=== PATIENT | female | born 1970 | race Caucasian/White ===

== ENCOUNTER 2017-11-17 16:02 | Emergency (ER) | payer MEDICAID ==
[~2017-11-17] VITALS: Ht 165.1 cm; Wt 127.0 kg
[2017-11-17 16:41] VITALS: BP_SYST 154
--- NOTE | 2017-11-17 18:20 | NUR ---
Patient to [facility] bed 1 to await MD evaluation.
[2017-11-17] MEDS ORDERED: cefTRIAXone 1 GM VIAL IM ONE (18:30)
--- NOTE | 2017-11-17 18:30 | NUR ---
Dr. Esquivel at chairside to assess pt.
--- NOTE | 2017-11-17 19:00 | NUR ---
Patient arrived to ED a/o x 4 with c/o right sided pain and tenderness. Patient presents with red and inflammed right thigh and lower leg pain. Reports 8/10 pain. Patient febrile at 100.1. Denies SOB or CP. CMS present to affected extremity.
[2017-11-17] MEDS ORDERED: LIDOCAINE 1%, 20 ML MDV 20 ML ONE (19:07)
[2017-11-17 19:17] VITALS: BP_SYST 151
--- NOTE | 2017-11-17 19:17 | NUR ---
Patient given written and verbal discharge instructions and verbalizes understanding. ER MD discussed with patient the results and treatment provided. Patient in stable condition. ID arm band removed. Rx of Bactrim, Keflex and ibuprofen given. Patient educated on pain management and to follow up with PMD. Pain Scale 3/10. Opportunity for questions provided and answered.
== END 2017-11-17 19:17 | disposition home or self-care (01) ==
LOC: SED 16:02
DX: L03.116 Cellulitis of left lower limb (principal); R03.0 Elevated blood-pressure reading, without diagnosis of hypertension; F17.210 Nicotine dependence, cigarettes, uncomplicated
CPT/HCPCS: 96372; 99283; J0696; J2001

== ENCOUNTER 2018-02-14 16:00 | Inpatient (IN) | payer MEDICAID ==
[~2018-02-14] VITALS: Ht 165.1 cm; Wt 102.1 kg
[2018-02-14 16:08] VITALS: BP_SYST 140
[2018-02-14] MEDS ORDERED: NACL 0.9% 1,000 ML IV ONE ×2 (16:20→18:00)
[2018-02-14] MEDS ORDERED: KETOROLAC TROMETHAMINE 30 MG VIAL IVP ONE (16:30)
[2018-02-14 16:44] LABS: BASOPHILS # (AUTO) 0.1 K/uL (0.0-0.2); BASOPHILS % (AUTO) 0.4 % (0.0-2.0); EOSINOPHILS # (AUTO) 0.3 K/uL (0.0-0.4); EOSINOPHILS % (AUTO) 1.6 % (0.0-4.0); HEMATOCRIT 28.5 % (36-48); HEMOGLOBIN 8.9 g/dL (12.0-16.0); LYMPHOCYTES # (AUTO) 1.7 K/uL (1.0-5.5); LYMPHOCYTES % (AUTO) 9.5 % (20.5-51.5); MEAN CORPUSCULAR HEMOGLOBIN 22 pg (27-31); MEAN CORPUSCULAR HGB CONC 31 % (32-36); MEAN CORPUSCULAR VOLUME 70 fL (79.0-98.0); MONOCYTES # (AUTO) 1.3 K/uL (0.0-1.0); MONOCYTES % (AUTO) 7.2 % (1.7-9.3); NEUTROPHILS # (AUTO) 14.2 K/uL (1.8-7.7); NEUTROPHILS % (AUTO) 81.3 % (40.0-70.0); PLATELET COUNT (AUTO) 533 K/uL (130-430); RED BLOOD CELL COUNT(AUTO) 4.06 MIL/uL (4.2-6.2); RED CELL DISTRIBUTION WIDTH 18.2 % (9.0-15.0); WHITE BLOOD COUNT (AUTO) 17.6 K/uL (4.8-10.8)
[2018-02-14 16:50] LABS: BILIRUBIN,URINE NEGATIVE (NEGATIVE); BLOOD, URINE 3+ (NEGATIVE); CLARITY/URINE SL CLOUDY (CLEAR); COLOR,URINE YELLOW (YELLOW); GLUCOSE,URINE NEGATIVE (NEGATIVE); KETONES,URINE NEGATIVE (NEGATIVE); LEUKOCYTE ESTERASE ,URINE 1+ (NEGATIVE); NITRITE, URINE NEGATIVE (NEGATIVE); PH,URINE 5.5 (5.0-8.0); PROTEIN URINE 2+ (NEGATIVE); UROBILINOGEN,URINE 0.2 (0.2-1.0)
[2018-02-14 16:56] LABS: BACTERIA,URINE MANY /HPF (None Seen); MUCUS,URINE None Seen /LPF (None Seen); RBC,URINE 80-100 /HPF (0-3); WBC,URINE 80-100 /HPF (0-3)
[2018-02-14 16:59] LABS: CALCIUM 9.2 mg/dL (8.4-11.0); CREATININE 1.02 mg/dL (0.55-1.30); POTASSIUM 3.5 mmol/L (3.5-5.1)
[2018-02-14 17:04] LABS: ALBUMIN 2.9 g/dL (3.4-4.8); TOTAL BILIRUBIN 0.4 mg/dL (0.0-1.0)
[2018-02-14] MEDS ORDERED: cefTRIAXone 1 GM in D5W 50 ML IV ONE (17:30)
[2018-02-14] MEDS ORDERED: cefTRIAXone 1 GM VIAL ONE (17:51)
[2018-02-14] MEDS ORDERED: FERR-69 PO (18:18)
[2018-02-14] MEDS ORDERED: ONDANSETRON HCL 4 MG/2 ML VIAL IVP ONE (18:30)
[2018-02-14 19:40] VITALS: BP_SYST 163
[2018-02-14] MEDS ORDERED: ACETAMINOPHEN 650 MG SUPP.RECT RC PRN (19:45)
[2018-02-14] MEDS ORDERED: MORPHINE 2 MG/ML INJ. SYRINGE IVP PRN (19:45)
[2018-02-14] MEDS ORDERED: PIPERACILLIN/TAZO 3.375 GM in NS 50 ML IV ONE (20:00)
[2018-02-14] MEDS ORDERED: metroNIDAZOLE 500 mg/NS 100 ML IV ONE ×2 (20:00→21:22)
[2018-02-14 20:17] LABS: TOTAL IRON BIND. CAPACITY 326 ug/dL (250-450)
[2018-02-14] MEDS ORDERED: KCL 20 mEq in 100 mL (PREMIX) 100 ML IV ONE ×2 (20:48→21:27)
[2018-02-14] MEDS ORDERED: PIPERACILLIN/TAZOBACTAM 3.375 GM/VIAL (ZOSYN) IV ONE (21:22)
[2018-02-14] MEDS: POTASSIUM CHLORIDE 10 MEQ in NACL 0.9% 1,000 ML IV SCH (21:55)
[2018-02-14] MEDS: PANTOPRAZOLE SODIUM 40 MG/VIAL (PROTONIX) IVP SCH (22:36)
[2018-02-14 23:00] VITALS: BP_SYST 156
[2018-02-14] MEDS: PIPERACILLIN/TAZO 3.375/DEX-IS 50 ML IV SCH (23:23)
[2018-02-15] MEDS: MORPHINE 4 MG/ML INJ. SYRINGE IVP PRN ×5 (00:10→22:18)
[2018-02-15 01:05] VITALS: BP_SYST 166
[2018-02-15 04:08] VITALS: BP_SYST 155
[2018-02-15] MEDS: POTASSIUM CHLORIDE 10 MEQ in NACL 0.9% 1,000 ML IV SCH ×4 (05:36→19:56)
[2018-02-15] MEDS: metroNIDAZOLE 250 mg/NS 50 ML IV SCH ×3 (05:46→22:17)
[2018-02-15] MEDS: PIPERACILLIN/TAZO 3.375/DEX-IS 50 ML IV SCH ×4 (06:00→23:54)
[2018-02-15 06:43] LABS: EOSINOPHILS # (AUTO) 0.4 K/uL (0.0-0.4); HEMOGLOBIN 7.5 g/dL (12.0-16.0); MEAN CORPUSCULAR HEMOGLOBIN 22 pg (27-31)
[2018-02-15 06:55] LABS: RED BLOOD CELL COUNT(AUTO) 3.49 MIL/uL (4.2-6.2)
[2018-02-15 06:56] LABS: HEMATOCRIT 24.9 % (36-48); MEAN CORPUSCULAR VOLUME 71 fL (79.0-98.0)
[2018-02-15 06:57] LABS: LYMPHOCYTES % (AUTO) 6.5 % (20.5-51.5); NEUTROPHILS % (AUTO) 81.6 % (40.0-70.0); PLATELET COUNT (AUTO) 492 K/uL (130-430); RED CELL DISTRIBUTION WIDTH 18.5 % (9.0-15.0)
[2018-02-15 06:58] LABS: BASOPHILS % (AUTO) 0.2 % (0.0-2.0); EOSINOPHILS % (AUTO) 2.8 % (0.0-4.0); LYMPHOCYTES # (AUTO) 0.9 K/uL (1.0-5.5); MONOCYTES # (AUTO) 1.3 K/uL (0.0-1.0); MONOCYTES % (AUTO) 8.9 % (1.7-9.3); NEUTROPHILS # (AUTO) 11.7 K/uL (1.8-7.7)
[2018-02-15 06:59] LABS: MEAN CORPUSCULAR HGB CONC 30 % (32-36); WHITE BLOOD COUNT (AUTO) 14.3 K/uL (4.8-10.8)
[2018-02-15 07:13] LABS: ALBUMIN 2.3 g/dL (3.4-4.8); BILIRUBIN,DIRECT 0.1 mg/dL (0.0-0.3); CALCIUM 8.8 mg/dL (8.4-11.0); CREATININE 0.84 mg/dL (0.55-1.30); POTASSIUM 3.3 mmol/L (3.5-5.1); TOTAL BILIRUBIN 0.4 mg/dL (0.0-1.0)
[2018-02-15 07:47] LABS: THYROID STIMULATING HORMONE 1.5 uIu/mL (0.34-4.82)
[2018-02-15] MEDS: PANTOPRAZOLE SODIUM 40 MG/VIAL (PROTONIX) IVP SCH (08:06)
[2018-02-15] MEDS ORDERED: POTASSIUM CHLORIDE 30 MEQ in NS 250 ML IV ONE (08:30)
[2018-02-15] MEDS ORDERED: MORPHINE 4 MG/ML INJ. SYRINGE ONE (11:47)
[2018-02-15 12:50] VITALS: BP_SYST 155
[2018-02-15] MEDS ORDERED: FUROSEMIDE 40 MG/4 ML VIAL IVP ONE (13:00)
[2018-02-15] MEDS ORDERED: DIATR MEGLU/DIATRIZ SOD 30 ML SOLUTION PO ONE (15:01)
[2018-02-15] MEDS ORDERED: IOHEXOL 0 ML IV ONE (17:06)
[2018-02-15] MEDS ORDERED: IOHEXOL 100 ML IV ONE (17:13)
[2018-02-15 20:15] VITALS: BP_SYST 137
[2018-02-15 23:04] VITALS: BP_SYST 143
[2018-02-16] MEDS: metroNIDAZOLE 250 mg/NS 50 ML IV SCH ×2 (05:04→14:54)
[2018-02-16] MEDS: PIPERACILLIN/TAZO 3.375/DEX-IS 50 ML IV SCH ×4 (05:51→23:42)
[2018-02-16] MEDS: MORPHINE 4 MG/ML INJ. SYRINGE IVP PRN ×3 (05:56→23:09)
[2018-02-16 06:10] LABS: FOLATE (FOLIC ACID) 15.6 ng/mL (>3.0)
[2018-02-16 06:35] LABS: HEMATOCRIT 23.7 % (36-48); HEMOGLOBIN 7.2 g/dL (12.0-16.0); MEAN CORPUSCULAR HEMOGLOBIN 21 pg (27-31); MEAN CORPUSCULAR HGB CONC 31 % (32-36); MEAN CORPUSCULAR VOLUME 70 fL (79.0-98.0); RED BLOOD CELL COUNT(AUTO) 3.38 MIL/uL (4.2-6.2); RED CELL DISTRIBUTION WIDTH 17.8 % (9.0-15.0); WHITE BLOOD COUNT (AUTO) 19.4 K/uL (4.8-10.8)
[2018-02-16 06:51] LABS: ALBUMIN 2.2 g/dL (3.4-4.8); CALCIUM 8.6 mg/dL (8.4-11.0); CREATININE 0.99 mg/dL (0.55-1.30); TOTAL BILIRUBIN 0.4 mg/dL (0.0-1.0)
[2018-02-16 07:19] LABS: POTASSIUM 2.9 mmol/L (3.5-5.1)
[2018-02-16 07:31] LABS: PLATELET COUNT (AUTO) 535 K/uL (130-430)
[2018-02-16] MEDS ORDERED: POTASSIUM CHLORIDE 40 MEQ, LIDOCAINE JECT 2% PF 100 MG 50 MG in NS 250 ML IV ONE (08:00)
[2018-02-16 08:13] VITALS: BP_SYST 151
[2018-02-16] MEDS: POTASSIUM CHLORIDE 10 MEQ in NACL 0.9% 1,000 ML IV SCH (08:29)
[2018-02-16] MEDS: PANTOPRAZOLE SODIUM 40 MG/VIAL (PROTONIX) IVP SCH (08:31)
[2018-02-16 11:33] VITALS: BP_SYST 154
[2018-02-16] MEDS: ACETAMINOPHEN 325 MG TABLET PO PRN (16:31)
[2018-02-16 16:50] VITALS: BP_SYST 149
[2018-02-16] MEDS ORDERED: FLUCONAZOLE 100 mg/ NS 50 ML IV ONE (17:00)
[2018-02-16 19:45] VITALS: BP_SYST 154
[2018-02-16 23:42] VITALS: BP_SYST 174
[2018-02-17] VITALS (8 sets, daily range): BP systolic 141–169
[2018-02-17] MEDS: POTASSIUM CHLORIDE 10 MEQ in NACL 0.9% 1,000 ML IV SCH (00:28)
[2018-02-17] MEDS: ACETAMINOPHEN 325 MG TABLET PO PRN (00:55)
[2018-02-17] MEDS: MORPHINE 4 MG/ML INJ. SYRINGE IVP PRN ×5 (02:21→20:41)
[2018-02-17] MEDS: PIPERACILLIN/TAZO 3.375/DEX-IS 50 ML IV SCH ×3 (05:20→18:02)
[2018-02-17 06:02] LABS: BASOPHILS % (AUTO) 0.2 % (0.0-2.0); EOSINOPHILS # (AUTO) 0.7 K/uL (0.0-0.4); EOSINOPHILS % (AUTO) 4.1 % (0.0-4.0); HEMATOCRIT 23.8 % (36-48); HEMOGLOBIN 7.4 g/dL (12.0-16.0); LYMPHOCYTES # (AUTO) 1.4 K/uL (1.0-5.5); LYMPHOCYTES % (AUTO) 8.4 % (20.5-51.5); MEAN CORPUSCULAR HEMOGLOBIN 22 pg (27-31); MEAN CORPUSCULAR HGB CONC 31 % (32-36); MONOCYTES # (AUTO) 0.9 K/uL (0.0-1.0); MONOCYTES % (AUTO) 5.4 % (1.7-9.3); NEUTROPHILS # (AUTO) 13.6 K/uL (1.8-7.7); NEUTROPHILS % (AUTO) 81.9 % (40.0-70.0); PLATELET COUNT (AUTO) 544 K/uL (130-430); RED BLOOD CELL COUNT(AUTO) 3.37 MIL/uL (4.2-6.2); RED CELL DISTRIBUTION WIDTH 17.3 % (9.0-15.0); WHITE BLOOD COUNT (AUTO) 16.6 K/uL (4.8-10.8)
[2018-02-17 06:16] LABS: ALBUMIN 2.2 g/dL (3.4-4.8); CALCIUM 8.9 mg/dL (8.4-11.0); CREATININE 0.85 mg/dL (0.55-1.30); POTASSIUM 3.1 mmol/L (3.5-5.1); TOTAL BILIRUBIN 0.3 mg/dL (0.0-1.0)
[2018-02-17 06:56] LABS: MEAN CORPUSCULAR VOLUME 71 fL (79.0-98.0)
[2018-02-17] MEDS: PANTOPRAZOLE SODIUM 40 MG/VIAL (PROTONIX) IVP SCH (09:56)
[2018-02-17] MEDS ORDERED: POTASSIUM CHLORIDE 40 MEQ, LIDOCAINE JECT 2% PF 100 MG 50 MG in NS 250 ML IV ONE (10:15)
[2018-02-17] MEDS: KCL 20 mEq in NS 1000 mL 1,000 ML IV SCH (12:16)
[2018-02-17] MEDS: FLUCONAZOLE 100 mg/ NS 50 ML IV SCH (20:43)
[2018-02-17] MEDS: cloNIDine HCL 0.1 MG TABLET PO PRN (23:21)
[2018-02-18] VITALS (7 sets, daily range): BP systolic 146–165
[2018-02-18] MEDS: PIPERACILLIN/TAZO 3.375/DEX-IS 50 ML IV SCH ×5 (00:54→23:15)
[2018-02-18] MEDS: MORPHINE 4 MG/ML INJ. SYRINGE IVP PRN ×7 (02:01→21:13)
[2018-02-18] MEDS: KCL 20 mEq in NS 1000 mL 1,000 ML IV SCH ×2 (05:35→23:15)
[2018-02-18 06:18] LABS: BASOPHILS % (AUTO) 0.3 % (0.0-2.0); EOSINOPHILS % (AUTO) 6.1 % (0.0-4.0); HEMATOCRIT 26.4 % (36-48); HEMOGLOBIN 8.3 g/dL (12.0-16.0); LYMPHOCYTES # (AUTO) 1.2 K/uL (1.0-5.5); LYMPHOCYTES % (AUTO) 7.8 % (20.5-51.5); MEAN CORPUSCULAR HEMOGLOBIN 23 pg (27-31); MEAN CORPUSCULAR HGB CONC 31 % (32-36); MEAN CORPUSCULAR VOLUME 72 fL (79.0-98.0); MONOCYTES % (AUTO) 6.5 % (1.7-9.3); NEUTROPHILS # (AUTO) 12.4 K/uL (1.8-7.7); NEUTROPHILS % (AUTO) 79.3 % (40.0-70.0); RED BLOOD CELL COUNT(AUTO) 3.66 MIL/uL (4.2-6.2); RED CELL DISTRIBUTION WIDTH 17.7 % (9.0-15.0); WHITE BLOOD COUNT (AUTO) 15.6 K/uL (4.8-10.8)
[2018-02-18 06:54] LABS: CREATININE 0.84 mg/dL (0.55-1.30)
[2018-02-18 07:06] LABS: POTASSIUM 3.3 mmol/L (3.5-5.1)
[2018-02-18 07:10] LABS: PLATELET COUNT (AUTO) 611 K/uL (130-430)
[2018-02-18] MEDS: PANTOPRAZOLE SODIUM 40 MG/VIAL (PROTONIX) IVP SCH (09:36)
[2018-02-18] MEDS ORDERED: POTASSIUM CHLORIDE 10 MEQ TAB.PRT.SR PO ONE (10:00)
[2018-02-18] MEDS ORDERED: ALPRAZolam 0.25 MG TABLET PO ONE (16:30)
[2018-02-18] MEDS: FLUCONAZOLE 100 mg/ NS 50 ML IV SCH (21:11)
[2018-02-19] VITALS (7 sets, daily range): BP systolic 121–167
[2018-02-19] MEDS: MORPHINE 4 MG/ML INJ. SYRINGE IVP PRN ×7 (01:04→23:50)
[2018-02-19] MEDS: PIPERACILLIN/TAZO 3.375/DEX-IS 50 ML IV SCH ×4 (05:13→23:53)
[2018-02-19 07:36] LABS: CALCIUM 9.1 mg/dL (8.4-11.0); CREATININE 0.92 mg/dL (0.55-1.30); POTASSIUM 3.6 mmol/L (3.5-5.1)
[2018-02-19] MEDS: PANTOPRAZOLE SODIUM 40 MG/VIAL (PROTONIX) IVP SCH (08:18)
[2018-02-19] MEDS: FLUCONAZOLE 100 mg/ NS 50 ML IV SCH (20:15)
[2018-02-19] MEDS: cloNIDine HCL 0.1 MG TABLET PO PRN (20:17)
[2018-02-19] MEDS ORDERED: ZOLPIDEM TARTRATE 5 MG TABLET PO ONE (23:00)
[2018-02-19] MEDS: KCL 20 mEq in NS 1000 mL 1,000 ML IV SCH (23:58)
[2018-02-20] VITALS (7 sets, daily range): BP systolic 147–186
[2018-02-20] MEDS: MORPHINE 4 MG/ML INJ. SYRINGE IVP PRN ×6 (04:53→23:04)
[2018-02-20] MEDS: PIPERACILLIN/TAZO 3.375/DEX-IS 50 ML IV SCH ×4 (05:31→23:04)
[2018-02-20 06:16] LABS: BASOPHILS % (AUTO) 0.3 % (0.0-2.0); EOSINOPHILS % (AUTO) 6.5 % (0.0-4.0); HEMATOCRIT 27.2 % (36-48); HEMOGLOBIN 8.7 g/dL (12.0-16.0); LYMPHOCYTES # (AUTO) 1.3 K/uL (1.0-5.5); LYMPHOCYTES % (AUTO) 8.4 % (20.5-51.5); MEAN CORPUSCULAR HEMOGLOBIN 23 pg (27-31); MEAN CORPUSCULAR HGB CONC 32 % (32-36); MEAN CORPUSCULAR VOLUME 72 fL (79.0-98.0); MONOCYTES # (AUTO) 1.4 K/uL (0.0-1.0); MONOCYTES % (AUTO) 9.3 % (1.7-9.3); NEUTROPHILS # (AUTO) 11.6 K/uL (1.8-7.7); NEUTROPHILS % (AUTO) 75.5 % (40.0-70.0); RED BLOOD CELL COUNT(AUTO) 3.76 MIL/uL (4.2-6.2); RED CELL DISTRIBUTION WIDTH 18.3 % (9.0-15.0); WHITE BLOOD COUNT (AUTO) 15.3 K/uL (4.8-10.8)
[2018-02-20 06:38] LABS: INR 1.1 (0.8-1.2); PROTHROMBIN TIME 11.3 SECS (9.5-12.5)
[2018-02-20 06:45] LABS: CREATININE 0.96 mg/dL (0.55-1.30); POTASSIUM 3.4 mmol/L (3.5-5.1)
[2018-02-20 07:19] LABS: PLATELET COUNT (AUTO) 722 K/uL (130-430)
[2018-02-20] MEDS: PANTOPRAZOLE SODIUM 40 MG/VIAL (PROTONIX) IVP SCH (07:48)
[2018-02-20] MEDS ORDERED: POTASSIUM CHLORIDE 20 MEQ in NS 250 ML IV ONE (10:00)
[2018-02-20] MEDS ORDERED: IOHEXOL 50 ML IV ONE (11:46)
[2018-02-20] MEDS ORDERED: NACL 0.9% 1,000 ML IV SCH (13:09)
[2018-02-20] MEDS ORDERED: MORPHINE 4 MG/ML INJ. SYRINGE IVP PRN ×3 (13:15)
[2018-02-20] MEDS ORDERED: METOCLOPRAMIDE HCL 10 MG/2 ML VIAL IVP PRN (13:15)
[2018-02-20] MEDS ORDERED: fentaNYL CITRATE/PF 100 MCG/2 ML AMP IVP ONE (13:35)
[2018-02-20] MEDS ORDERED: fentaNYL CITRATE 250 MCG/5 ML AMP IV ONE (13:35)
[2018-02-20] MEDS ORDERED: WATER FOR IRRIGATION,STERILE 3,000 ML IRRIG.SOLN IR ONE (13:35)
[2018-02-20] MEDS ORDERED: MIDAZOLAM HCL 5 MG/ML VIAL (VERSED) IV ONE (13:35)
[2018-02-20] MEDS ORDERED: SUGAMMADEX SODIUM 200 MG/2 ML VIAL IV ONE (13:35)
[2018-02-20] MEDS ORDERED: SEVOFLURANE 15 MIN GAS INH ONE (13:35)
[2018-02-20] MEDS ORDERED: ONDANSETRON HCL 4 MG/2 ML VIAL IVP ONE (13:35)
[2018-02-20] MEDS ORDERED: LR 1,000 ML IV.SOLN IV ONE (13:35)
[2018-02-20] MEDS ORDERED: PROPOFOL 200MG/ 20ML VIAL (DIPRIVAN) IV ONE (13:35)
[2018-02-20] MEDS ORDERED: ROCURONIUM BROMIDE 10 MG/ML (ZEMURON) IV ONE (13:35)
[2018-02-20] MEDS: MORPHINE 4 MG/ML INJ. SYRINGE ONE ×2 (13:44→13:53)
[2018-02-20] MEDS ORDERED: MIDAZOLAM HCL 2 MG/2 ML VIAL (VERSED) IVP ONE (14:00)
[2018-02-20] MEDS: MIDAZOLAM HCL 2 MG/2 ML VIAL (VERSED) ONE ×2 (14:02→14:17)
[2018-02-20] MEDS: KCL 20 mEq in NS 1000 mL 1,000 ML IV SCH (18:05)
[2018-02-20] MEDS: FLUCONAZOLE 100 mg/ NS 50 ML IV SCH (20:14)
[2018-02-20] MEDS: cloNIDine HCL 0.1 MG TABLET PO PRN (20:32)
[2018-02-20] MEDS: ACETAMINOPHEN 325 MG TABLET PO PRN (21:49)
[2018-02-21] VITALS (7 sets, daily range): BP systolic 122–184
[2018-02-21] MEDS: cloNIDine HCL 0.1 MG TABLET PO PRN (01:55)
[2018-02-21] MEDS: MORPHINE 4 MG/ML INJ. SYRINGE IVP PRN ×6 (01:56→23:16)
[2018-02-21] MEDS: KCL 20 mEq in NS 1000 mL 1,000 ML IV SCH (01:57)
[2018-02-21] MEDS ORDERED: LORazepam 1 MG TABLET PO ONE (03:00)
[2018-02-21] MEDS: PIPERACILLIN/TAZO 3.375/DEX-IS 50 ML IV SCH ×4 (05:06→23:19)
[2018-02-21 07:41] LABS: ALBUMIN 2.2 g/dL (3.4-4.8); CALCIUM 9.1 mg/dL (8.4-11.0); CREATININE 1.04 mg/dL (0.55-1.30); POTASSIUM 3.7 mmol/L (3.5-5.1); TOTAL BILIRUBIN 0.2 mg/dL (0.0-1.0)
[2018-02-21 07:45] LABS: BASOPHILS % (AUTO) 0.3 % (0.0-2.0); EOSINOPHILS # (AUTO) 0.3 K/uL (0.0-0.4); EOSINOPHILS % (AUTO) 1.6 % (0.0-4.0); HEMATOCRIT 30.8 % (36-48); HEMOGLOBIN 9.5 g/dL (12.0-16.0); LYMPHOCYTES # (AUTO) 1.3 K/uL (1.0-5.5); LYMPHOCYTES % (AUTO) 7.7 % (20.5-51.5); MEAN CORPUSCULAR HEMOGLOBIN 23 pg (27-31); MEAN CORPUSCULAR HGB CONC 31 % (32-36); MEAN CORPUSCULAR VOLUME 73 fL (79.0-98.0); MONOCYTES % (AUTO) 6.2 % (1.7-9.3); NEUTROPHILS # (AUTO) 13.9 K/uL (1.8-7.7); NEUTROPHILS % (AUTO) 84.2 % (40.0-70.0); RED BLOOD CELL COUNT(AUTO) 4.24 MIL/uL (4.2-6.2); RED CELL DISTRIBUTION WIDTH 18.6 % (9.0-15.0); WHITE BLOOD COUNT (AUTO) 16.5 K/uL (4.8-10.8)
[2018-02-21] MEDS ORDERED: *LOVENOX0.75MG/KG Q12H/PHARMACY XX PRN (08:30)
[2018-02-21] MEDS ORDERED: ENOXAPARIN SODIUM 80 MG/0.8 ML SYRINGE SUBCUT SCH (09:00)
[2018-02-21] MEDS: PANTOPRAZOLE SODIUM 40 MG/VIAL (PROTONIX) IVP SCH (09:44)
[2018-02-21 10:20] LABS: PLATELET COUNT (AUTO) 824 K/uL (130-430)
[2018-02-21] MEDS: KETOROLAC TROMETHAMINE 30 MG VIAL IVP PRN (15:38)
[2018-02-21] MEDS ORDERED: NICOTINE 14 MG/24 HR PATCH.TD24 TD ONE (18:00)
[2018-02-21] MEDS: FLUCONAZOLE 100 mg/ NS 50 ML IV SCH (20:58)
[2018-02-22] MEDS: KETOROLAC TROMETHAMINE 30 MG VIAL IVP PRN ×3 (01:52→23:17)
[2018-02-22] MEDS: MORPHINE 4 MG/ML INJ. SYRINGE IVP PRN ×5 (04:22→20:11)
[2018-02-22] MEDS: PIPERACILLIN/TAZO 3.375/DEX-IS 50 ML IV SCH ×3 (05:41→18:06)
[2018-02-22 08:00] VITALS: BP_SYST 147
[2018-02-22] MEDS: NICOTINE 14 MG/24 HR PATCH.TD24 TD SCH (08:09)
[2018-02-22] MEDS: PANTOPRAZOLE SODIUM 40 MG/VIAL (PROTONIX) IVP SCH (08:09)
[2018-02-22] MEDS ORDERED: ENOXAPARIN SODIUM 40 MG/0.4 ML SYRINGE SUBCUT SCH (09:00)
[2018-02-22] MEDS: ONDANSETRON HCL 4 MG/2 ML VIAL IVP PRN (12:00)
[2018-02-22 12:07] VITALS: BP_SYST 163
[2018-02-22 16:00] VITALS: BP_SYST 136
[2018-02-22 20:00] VITALS: BP_SYST 160
[2018-02-22] MEDS: cloNIDine HCL 0.1 MG TABLET PO PRN (20:12)
[2018-02-22] MEDS: KCL 20 mEq in NS 1000 mL 1,000 ML IV SCH (22:00)
[2018-02-22] MEDS: DOCUSATE SODIUM 250 MG CAPSULE PO SCH (23:24)
[2018-02-22] MEDS ORDERED: MAG-AL HYDROX/SIMETH 30 ML UDC PO ONE (23:30)
[2018-02-22 23:59] VITALS: BP_SYST 156
[2018-02-23] MEDS: PIPERACILLIN/TAZO 3.375/DEX-IS 50 ML IV SCH ×5 (00:40→23:03)
[2018-02-23] MEDS: MORPHINE 4 MG/ML INJ. SYRINGE IVP PRN ×6 (01:44→22:42)
[2018-02-23] MEDS: KCL 20 mEq in NS 1000 mL 1,000 ML IV SCH (02:05)
[2018-02-23 02:06] LABS: CHLAMYDIA TRACHOMATIS NAA Negative (Negative); NEISSERIA GONORRHOEAE NAA Negative (Negative)
[2018-02-23 07:58] VITALS: BP_SYST 147
[2018-02-23] MEDS: KETOROLAC TROMETHAMINE 30 MG VIAL IVP PRN ×2 (08:23→17:12)
[2018-02-23] MEDS: NICOTINE 14 MG/24 HR PATCH.TD24 TD SCH (08:23)
[2018-02-23] MEDS: DOCUSATE SODIUM 250 MG CAPSULE PO SCH ×2 (08:23→21:52)
[2018-02-23] MEDS: PANTOPRAZOLE SODIUM 40 MG/VIAL (PROTONIX) IVP SCH (08:23)
[2018-02-23] MEDS ORDERED: NA PHOS,M-B/NA PHOS,DI-BA 118 ML (FLEET ENEMA) RC ONE (09:00)
[2018-02-23 12:14] LABS: HEMATOCRIT 27.6 % (36-48); HEMOGLOBIN 8.7 g/dL (12.0-16.0); MEAN CORPUSCULAR HEMOGLOBIN 23 pg (27-31); MEAN CORPUSCULAR HGB CONC 32 % (32-36); MEAN CORPUSCULAR VOLUME 72 fL (79.0-98.0); RED BLOOD CELL COUNT(AUTO) 3.83 MIL/uL (4.2-6.2); RED CELL DISTRIBUTION WIDTH 19.1 % (9.0-15.0); WHITE BLOOD COUNT (AUTO) 11.3 K/uL (4.8-10.8)
[2018-02-23 12:20] LABS: PLATELET COUNT (AUTO) 777 K/uL (130-430)
[2018-02-23 12:28] LABS: CALCIUM 9.1 mg/dL (8.4-11.0); POTASSIUM 3.4 mmol/L (3.5-5.1)
[2018-02-23 12:42] VITALS: BP_SYST 167
[2018-02-23] MEDS ORDERED: POTASSIUM CHLORIDE 20 MEQ TAB.PRT.SR PO ONE (12:45)
[2018-02-23 12:48] LABS: BAND % (MANUAL) 1 % (0-6); BASOPHILS % (MANUAL) 0 % (0-2); EOSINOPHILS % (MANUAL) 9 % (0-7); LYMPHOCYTES % (MANUAL) 19 % (20-46); MONOCYTES % (MANUAL) 3 % (0-11)
[2018-02-23 16:49] VITALS: BP_SYST 151
[2018-02-23 17:00] VITALS: BP_SYST 151
[2018-02-23 19:20] VITALS: BP_SYST 149
[2018-02-24 00:52] VITALS: BP_SYST 153
[2018-02-24] MEDS: MORPHINE 4 MG/ML INJ. SYRINGE IVP PRN ×5 (02:42→20:22)
[2018-02-24] MEDS: PIPERACILLIN/TAZO 3.375/DEX-IS 50 ML IV SCH ×4 (05:11→23:19)
[2018-02-24] MEDS: KETOROLAC TROMETHAMINE 30 MG VIAL IVP PRN ×2 (05:12→13:57)
[2018-02-24 06:52] LABS: CALCIUM 8.7 mg/dL (8.4-11.0); CREATININE 0.85 mg/dL (0.55-1.30); POTASSIUM 3.5 mmol/L (3.5-5.1)
[2018-02-24 08:00] VITALS: BP_SYST 130
[2018-02-24] MEDS: PANTOPRAZOLE SODIUM 40 MG/VIAL (PROTONIX) IVP SCH (08:09)
[2018-02-24] MEDS: DOCUSATE SODIUM 250 MG CAPSULE PO SCH ×3 (08:09→20:21)
[2018-02-24] MEDS: NICOTINE 14 MG/24 HR PATCH.TD24 TD SCH (08:09)
[2018-02-24 12:00] VITALS: BP_SYST 136
[2018-02-24 16:17] VITALS: BP_SYST 148
[2018-02-24 20:00] VITALS: BP_SYST 159
[2018-02-24] MEDS: KCL 20 mEq in NS 1000 mL 1,000 ML IV SCH (23:22)
[2018-02-25 00:03] VITALS: BP_SYST 113
[2018-02-25] MEDS: KETOROLAC TROMETHAMINE 30 MG VIAL IVP PRN (00:06)
[2018-02-25] MEDS: MORPHINE 4 MG/ML INJ. SYRINGE IVP PRN ×2 (01:39→05:43)
[2018-02-25] MEDS ORDERED: MORPHINE 4 MG/ML INJ. SYRINGE IVP ONE (04:00)
[2018-02-25] MEDS ORDERED: LORazepam 2 MG/ML VIAL IM ONE (04:30)
[2018-02-25] MEDS: PIPERACILLIN/TAZO 3.375/DEX-IS 50 ML IV SCH ×3 (05:41→18:21)
[2018-02-25 08:32] VITALS: BP_SYST 158
[2018-02-25] MEDS: PANTOPRAZOLE SODIUM 40 MG/VIAL (PROTONIX) IVP SCH (09:49)
[2018-02-25] MEDS: DOCUSATE SODIUM 250 MG CAPSULE PO SCH ×2 (09:50→21:02)
[2018-02-25] MEDS: NICOTINE 14 MG/24 HR PATCH.TD24 TD SCH (09:50)
[2018-02-25] MEDS: HYDROcodone/ACETAMIN 10-325 MG TAB PO PRN ×4 (10:22→22:06)
[2018-02-25 12:03] VITALS: BP_SYST 139
[2018-02-25] MEDS: DIPHENHYDRAMINE HCL 50 MG CAPSULE PO SCH ×2 (15:00→21:01)
[2018-02-25 16:17] VITALS: BP_SYST 141
[2018-02-25] MEDS: PANTOPRAZOLE SODIUM 40 MG TAB PO SCH (21:02)
[2018-02-25] MEDS ORDERED: SIMETHICONE 80 MG TAB.CHEW PO ONE (22:15)
[2018-02-25] MEDS ORDERED: MAG-AL HYDROX/SIMETH 30 ML UDC PO ONE (22:15)
[2018-02-26 00:18] VITALS: BP_SYST 151
[2018-02-26] MEDS ORDERED: LORazepam 1 MG TABLET PO ONE (02:00)
[2018-02-26] MEDS: HYDROcodone/ACETAMIN 10-325 MG TAB PO PRN ×3 (02:02→10:12)
[2018-02-26] MEDS: PIPERACILLIN/TAZO 3.375/DEX-IS 50 ML IV SCH ×4 (02:03→17:54)
[2018-02-26] MEDS: KCL 20 mEq in NS 1000 mL 1,000 ML IV SCH ×3 (05:28→18:00)
[2018-02-26 06:55] LABS: BASOPHILS # (AUTO) 0.1 K/uL (0.0-0.2); BASOPHILS % (AUTO) 0.5 % (0.0-2.0); EOSINOPHILS # (AUTO) 0.7 K/uL (0.0-0.4); EOSINOPHILS % (AUTO) 6.3 % (0.0-4.0); LYMPHOCYTES # (AUTO) 1.7 K/uL (1.0-5.5); LYMPHOCYTES % (AUTO) 16.4 % (20.5-51.5); MEAN CORPUSCULAR HEMOGLOBIN 22 pg (27-31); MEAN CORPUSCULAR HGB CONC 31 % (32-36); MEAN CORPUSCULAR VOLUME 72 fL (79.0-98.0); MONOCYTES # (AUTO) 0.7 K/uL (0.0-1.0); MONOCYTES % (AUTO) 6.4 % (1.7-9.3); NEUTROPHILS # (AUTO) 7.4 K/uL (1.8-7.7); NEUTROPHILS % (AUTO) 70.4 % (40.0-70.0); PLATELET COUNT (AUTO) 650 K/uL (130-430); RED BLOOD CELL COUNT(AUTO) 2.91 MIL/uL (4.2-6.2); RED CELL DISTRIBUTION WIDTH 18.3 % (9.0-15.0); WHITE BLOOD COUNT (AUTO) 10.6 K/uL (4.8-10.8)
[2018-02-26 07:02] LABS: CREATININE 0.92 mg/dL (0.55-1.30); POTASSIUM 3.5 mmol/L (3.5-5.1)
[2018-02-26 07:35] LABS: HEMATOCRIT 20.9 % (36-48); HEMOGLOBIN 6.5 g/dL (12.0-16.0)
[2018-02-26] MEDS: DOCUSATE SODIUM 250 MG CAPSULE PO SCH ×2 (10:12→21:28)
[2018-02-26] MEDS: NICOTINE 14 MG/24 HR PATCH.TD24 TD SCH (10:12)
[2018-02-26] MEDS: DIPHENHYDRAMINE HCL 50 MG CAPSULE PO SCH ×3 (10:13→21:28)
[2018-02-26] MEDS: PANTOPRAZOLE SODIUM 40 MG TAB PO SCH ×2 (10:13→21:28)
[2018-02-26 10:57] VITALS: BP_SYST 157
[2018-02-26 12:02] VITALS: BP_SYST 161
[2018-02-26] MEDS ORDERED: KETOROLAC TROMETHAMINE 15 MG VIAL IVP ONE (13:12)
[2018-02-26] MEDS ORDERED: ALPRAZolam 0.25 MG TABLET PO ONE (13:13)
[2018-02-26] MEDS ORDERED: DIATR MEGLU/DIATRIZ SOD 30 ML SOLUTION PO ONE (14:25)
[2018-02-26] MEDS: MORPHINE 4 MG/ML INJ. SYRINGE IVP PRN ×3 (14:45→22:56)
[2018-02-26] MEDS: ONDANSETRON HCL 4 MG/2 ML VIAL IVP PRN (14:54)
[2018-02-26 15:30] VITALS: BP_SYST 126
[2018-02-26] MEDS ORDERED: IOHEXOL 100 ML IV ONE (16:19)
[2018-02-26 16:34] VITALS: BP_SYST 126
[2018-02-26 20:16] VITALS: BP_SYST 150
[2018-02-27 00:20] VITALS: BP_SYST 150
[2018-02-27] MEDS: PIPERACILLIN/TAZO 3.375/DEX-IS 50 ML IV SCH ×4 (00:51→18:00)
[2018-02-27] MEDS: MORPHINE 4 MG/ML INJ. SYRINGE IVP PRN ×5 (03:08→20:00)
[2018-02-27 06:55] LABS: HEMATOCRIT 22.5 % (36-48); HEMOGLOBIN 7.3 g/dL (12.0-16.0); MEAN CORPUSCULAR HEMOGLOBIN 24 pg (27-31); MEAN CORPUSCULAR HGB CONC 32 % (32-36); PLATELET COUNT (AUTO) 633 K/uL (130-430); RED BLOOD CELL COUNT(AUTO) 3.04 MIL/uL (4.2-6.2); WHITE BLOOD COUNT (AUTO) 11.4 K/uL (4.8-10.8)
[2018-02-27 07:08] LABS: CALCIUM 9.1 mg/dL (8.4-11.0); CREATININE 0.92 mg/dL (0.55-1.30); POTASSIUM 3.8 mmol/L (3.5-5.1)
[2018-02-27 07:29] LABS: MEAN CORPUSCULAR VOLUME 74 fL (79.0-98.0)
[2018-02-27 08:05] VITALS: BP_SYST 169
[2018-02-27] MEDS: DOCUSATE SODIUM 250 MG CAPSULE PO SCH ×2 (08:10→22:20)
[2018-02-27] MEDS: DIPHENHYDRAMINE HCL 50 MG CAPSULE PO SCH ×3 (08:10→22:20)
[2018-02-27] MEDS: PANTOPRAZOLE SODIUM 40 MG TAB PO SCH ×2 (08:10→22:20)
[2018-02-27] MEDS: NICOTINE 14 MG/24 HR PATCH.TD24 TD SCH (08:11)
[2018-02-27] MEDS: KCL 20 mEq in NS 1000 mL 1,000 ML IV SCH (08:17)
[2018-02-27 09:43] LABS: ATYPICAL LYMPHOCYTES % 0 % (0-0); BAND % (MANUAL) 2 % (0-6); BASOPHILS % (MANUAL) 0 % (0-2); EOSINOPHILS % (MANUAL) 5 % (0-7); LYMPHOCYTES % (MANUAL) 17 % (20-46); MONOCYTES % (MANUAL) 8 % (0-11)
[2018-02-27 12:53] VITALS: BP_SYST 138
[2018-02-27 16:00] VITALS: BP_SYST 154
[2018-02-27 20:10] VITALS: BP_SYST 149
[2018-02-28] MEDS: MORPHINE 4 MG/ML INJ. SYRINGE IVP PRN ×7 (00:15→22:34)
[2018-02-28] MEDS: PIPERACILLIN/TAZO 3.375/DEX-IS 50 ML IV SCH ×4 (00:16→17:35)
[2018-02-28 01:05] VITALS: BP_SYST 153
[2018-02-28] MEDS: KCL 20 mEq in NS 1000 mL 1,000 ML IV SCH (04:12)
[2018-02-28 07:10] LABS: BASOPHILS % (AUTO) 0.4 % (0.0-2.0); EOSINOPHILS # (AUTO) 0.8 K/uL (0.0-0.4); EOSINOPHILS % (AUTO) 7.1 % (0.0-4.0); HEMATOCRIT 25.6 % (36-48); HEMOGLOBIN 8.3 g/dL (12.0-16.0); LYMPHOCYTES # (AUTO) 1.6 K/uL (1.0-5.5); LYMPHOCYTES % (AUTO) 14.5 % (20.5-51.5); MEAN CORPUSCULAR HEMOGLOBIN 25 pg (27-31); MEAN CORPUSCULAR HGB CONC 33 % (32-36); MONOCYTES # (AUTO) 0.8 K/uL (0.0-1.0); MONOCYTES % (AUTO) 7.4 % (1.7-9.3); NEUTROPHILS # (AUTO) 7.8 K/uL (1.8-7.7); NEUTROPHILS % (AUTO) 70.6 % (40.0-70.0); PLATELET COUNT (AUTO) 635 K/uL (130-430); RED BLOOD CELL COUNT(AUTO) 3.38 MIL/uL (4.2-6.2); RED CELL DISTRIBUTION WIDTH 20.6 % (9.0-15.0)
[2018-02-28 07:20] LABS: MEAN CORPUSCULAR VOLUME 76 fL (79.0-98.0)
[2018-02-28 07:45] VITALS: BP_SYST 142
[2018-02-28] MEDS: DIPHENHYDRAMINE HCL 50 MG CAPSULE PO SCH ×3 (09:14→21:59)
[2018-02-28] MEDS: NICOTINE 14 MG/24 HR PATCH.TD24 TD SCH (09:14)
[2018-02-28] MEDS: DOCUSATE SODIUM 250 MG CAPSULE PO SCH ×2 (09:14→20:23)
[2018-02-28] MEDS: PANTOPRAZOLE SODIUM 40 MG TAB PO SCH ×2 (09:14→21:07)
[2018-02-28] MEDS: HYDROcodone/ACETAMIN 10-325 MG TAB PO PRN ×2 (10:18→21:08)
[2018-02-28 12:13] VITALS: BP_SYST 136
[2018-02-28 15:59] VITALS: BP_SYST 146
[2018-02-28 20:10] VITALS: BP_SYST 157
[2018-02-28] MEDS ORDERED: LORazepam 1 MG TABLET PO ONE (21:30)
[2018-02-28 23:49] VITALS: BP_SYST 156
[2018-03-01] MEDS: PIPERACILLIN/TAZO 3.375/DEX-IS 50 ML IV SCH ×3 (02:39→12:33)
[2018-03-01] MEDS: MORPHINE 4 MG/ML INJ. SYRINGE IVP PRN ×5 (02:41→16:26)
[2018-03-01] MEDS: HYDROcodone/ACETAMIN 10-325 MG TAB PO PRN ×3 (06:00→15:01)
[2018-03-01 08:00] VITALS: BP_SYST 123
[2018-03-01] MEDS: DIPHENHYDRAMINE HCL 50 MG CAPSULE PO SCH ×2 (08:21→15:00)
[2018-03-01] MEDS: DOCUSATE SODIUM 250 MG CAPSULE PO SCH (08:22)
[2018-03-01] MEDS: NICOTINE 14 MG/24 HR PATCH.TD24 TD SCH (08:22)
[2018-03-01] MEDS: PANTOPRAZOLE SODIUM 40 MG TAB PO SCH (08:22)
[2018-03-01 12:13] VITALS: BP_SYST 123
[2018-03-01 15:45] VITALS: BP_SYST 140
[2018-03-01 16:49] VITALS: BP_SYST 140
[2018-03-05] MEDS ORDERED: PRO40 PO (15:33)
[2018-03-05] MEDS ORDERED: AMOX-426 PO (15:33)
[2018-03-05] MEDS ORDERED: FERR-57 PO (15:33)
[2018-03-05] MEDS ORDERED: DOCU-144 PO (15:33)
[2018-03-05] MEDS ORDERED: HYDR-4100 PO (15:33)
[2018-03-05] MEDS ORDERED: ALPR0.5T96 PO (15:33)
[2018-03-05] MEDS ORDERED: PROV10 PO (15:33)
== END 2018-03-01 18:25 | disposition home health service (06) | DRG 710 ==
LOC: SED 16:00 → STU 18:33 → SMU 02-20 15:39
PROVIDERS: ADMIT Internal Medicine; ATTEND Internal Medicine
PROC: 30233N1 Transfusion of Nonautologous Red Blood Cells into Peripheral Vein, Percutaneous Approach (ICD-10-PCS; 2018-02-17)
PROC: 0UT00ZZ Resection of Right Ovary, Open Approach (ICD-10-PCS; 2018-02-20)
PROC: 0T788DZ Dilation of Bilateral Ureters with Intraluminal Device, Via Natural or Artificial Opening Endoscopic (ICD-10-PCS; 2018-02-20)
PROC: BT141ZZ Fluoroscopy of Kidneys, Ureters and Bladder using Low Osmolar Contrast (ICD-10-PCS; 2018-02-20)
PROC: 0DTJ0ZZ Resection of Appendix, Open Approach (ICD-10-PCS; principal; 2018-02-20 12:00)
PROC: 0UT50ZZ Resection of Right Fallopian Tube, Open Approach (ICD-10-PCS; 2018-02-20 12:00)
DX: A41.9 Sepsis, unspecified organism (principal); E43 Unspecified severe protein-calorie malnutrition; N13.30 Unspecified hydronephrosis; K57.32 Diverticulitis of large intestine without perforation or abscess without bleeding; K35.3 Acute appendicitis with localized peritonitis; C57.01 Malignant neoplasm of right fallopian tube; E66.01 Morbid (severe) obesity due to excess calories; N39.0 Urinary tract infection, site not specified; D50.9 Iron deficiency anemia, unspecified; B96.4 Proteus (mirabilis) (morganii) as the cause of diseases classified elsewhere; J44.9 Chronic obstructive pulmonary disease, unspecified; F17.210 Nicotine dependence, cigarettes, uncomplicated; D47.3 Essential (hemorrhagic) thrombocythemia; N70.93 Salpingitis and oophoritis, unspecified; K59.00 Constipation, unspecified; K80.20 Calculus of gallbladder without cholecystitis without obstruction; Z68.37 Body mass index [BMI] 37.0-37.9, adult
CPT/HCPCS: 36415; 71045; 72193-TC; 76000; 76700-TC; 76770; 76856-TC; 78708; 80048; 80053; 80076; 81000-TC; 81025; 82150-TC; 82272; 82378; 82607; 82746; 82962; 83540-TC; 83550-TC; 83605; 83690-TC; 83735-TC; 84443-TC; 84702-TC; 85007; 85025; 85027; 85610-TC; 85730-TC; 86304; 86886; 86900; 86901; 86920; 87040-TC; 87045-TC; 87046; 87070; 87070-TC; 87075-TC; 87086; 87177; 87186-TC; 87230-TC; 87491; 87591; 88305; 88341; 88342; 88361; 89055; 93005; 94010; 94760; 96361; 96365; 97110-GP; 97116-GP; 97530-GP; 99291; A9562; C2625; C9113; C9399; J0696; J1450; J1650; J1885; J1940; J2060; J2250; J2270; J2405; J2543; J2704; J3010; J3465; J3480; J3490; J7030; J7040; J7050; J7060; J7120; P9021; Q0163; Q9964; Q9967